=== PATIENT | female | born 1960 | race African-American/Black ===

== ENCOUNTER 2024-01-31 10:24 | Inpatient (IN) | payer MEDICAID ==
[~2024-01-31] VITALS: Ht 160 cm; Wt 75.2 kg
[2024-01-31] MEDS ORDERED: METOCLOPRAMIDE HCL 5MG/ml INJ 2ml VIAL IV ONE (10:45)
[2024-01-31] MEDS ORDERED: KETOROLAC TROMETH 30 MG/ML 1ML VIAL IV ONE (10:45)
[2024-01-31] MEDS: MORPHINE SULFATE 4 MG/ML SYR/VIAL IV ONE (11:16)
[2024-01-31] MEDS: ONDANSETRON HCL 4 MG/2 ML VIAL IV ONE (11:16)
[2024-01-31] MEDS: SODIUM CHLORIDE 0.9% 1,000 ML IV ONE (11:31)
[2024-01-31 11:36] VITALS: PULSE 81; RESP 15; O2SAT 96
[2024-01-31 11:40] LABS: Albumin 4.6 g/dL (3.2-4.8); Alkaline Phosphatase 75 U/L (46-116); Anion Gap 11 (5-15); Aspartate Aminotransferase 9 U/L (13-40); BUN/Creatinine Ratio 11.4 (10.0-20.0); Bilirubin, Total 0.5 mg/dL (0.2-1.0); Blood Urea Nitrogen 16 mg/dL (9-23); Calcium 10.2 mg/dL (8.7-10.4); Carbon Dioxide 23 mmol/L (20-30); Chloride 111 mmol/L (98-107); Glucose 99 mg/dL (74-106); Lipase 39 U/L (12-53); Sodium 145 mmol/L (136-145); Total Protein 7.7 g/dL (5.7-8.2)
[2024-01-31 11:48] LABS: Alanine Aminotransferase < 9 U/L (7-40)
[2024-01-31 11:52] LABS: Lactic Acid w/Reflex 3.4 mmol/L (0.4-2.0)
[2024-01-31 12:00] LABS: Basophils # (auto) 0 10 ^3/uL (0-0.2); Basophils % (auto) 0.5 % (0.0-2.0); Eosinophils # (auto) 0.1 10 ^3/uL (0-0.8); Eosinophils % (auto) 1.5 % (0.0-7.0); Hematocrit 37.3 % (36.0-46.0); Lymphocytes # (auto) 1.6 10 ^3/uL (0.4-5.4); Lymphocytes % (auto) 22.4 % (10.0-50.0); Mean Corpuscular Hemoglobin 27.3 pg (28.0-32.0); Mean Corpuscular Hgb Conc. 32.3 g/dL (32.0-36.0); Mean Corpuscular Volume 84.8 fL (80.0-100.0); Monocytes # (auto) 0.3 10 ^3/uL (0-1.3); Monocytes % (auto) 4.4 % (0.0-12.0); Neutrophils # (auto) 5.1 10 ^3/uL (1.6-8.6); Neutrophils % (auto) 71.2 % (37.0-80.0); Nucleated Red Blood Cells % 0.1 %; Red Cell Distribution Width 13.9 % (11.8-14.3); White Blood Cell 7.2 10^3/uL (4.4-10.8)
[2024-01-31] MEDS: PIPERACILLIN-TAZOB 3.375GM 100 ML IV ONE (12:34)
[2024-01-31 12:45] LABS: Platelet Estimate Adequate
[2024-01-31] MEDS ORDERED: DOCUSATE SOD 100 MG CAP PO PRN (13:15)
[2024-01-31] MEDS ORDERED: MORPHINE SULFATE INJ 2 MG/ml SYRG IV PRN (13:15)
[2024-01-31] MEDS ORDERED: NITROGLYCERIN 0.4 MG SL TAB SL PRN (13:15)
[2024-01-31] MEDS: SODIUM CHLORIDE 0.9% 1,000 ML IV SCH (13:21)
[2024-01-31 15:24] LABS: INR 0.97 (0.9-1.15); Partial Thromboplastin Time 23.5 SEC (24.5-34.5); Prothrombin Time 10.3 sec (9.3-11.8)
[2024-01-31] MEDS: PIPERACILLIN-TAZOB 3.375GM 100 ML IV SCH (18:00)
[2024-01-31] MEDS: HYDROcodone-ACET 5/325MG TAB PO PRN (23:48)
[2024-02-01 05:05] LABS: Basophils # (auto) 0 10 ^3/uL (0-0.2); Basophils % (auto) 0.5 % (0.0-2.0); Eosinophils # (auto) 0.1 10 ^3/uL (0-0.8); Eosinophils % (auto) 1.2 % (0.0-7.0); Hematocrit 32.4 % (36.0-46.0); Hemoglobin 10.6 g/dL (12.2-16.2); Lymphocytes # (auto) 1.6 10 ^3/uL (0.4-5.4); Lymphocytes % (auto) 21.4 % (10.0-50.0); Mean Corpuscular Hemoglobin 27.5 pg (28.0-32.0); Mean Corpuscular Hgb Conc. 32.7 g/dL (32.0-36.0); Mean Corpuscular Volume 84.1 fL (80.0-100.0); Monocytes # (auto) 0.4 10 ^3/uL (0-1.3); Monocytes % (auto) 5.4 % (0.0-12.0); Neutrophils # (auto) 5.3 10 ^3/uL (1.6-8.6); Neutrophils % (auto) 71.5 % (37.0-80.0); Red Blood Cells 3.85 10^6/uL (4.0-5.20); Red Cell Distribution Width 13.9 % (11.8-14.3); White Blood Cell 7.5 10^3/uL (4.4-10.8)
[2024-02-01 05:21] LABS: Albumin 4.1 g/dL (3.2-4.8); Alkaline Phosphatase 67 U/L (46-116); Anion Gap 9 (5-15); Aspartate Aminotransferase 9 U/L (13-40); BUN/Creatinine Ratio 11.2 (10.0-20.0); Blood Urea Nitrogen 13 mg/dL (9-23); Calcium 9.2 mg/dL (8.7-10.4); Carbon Dioxide 24 mmol/L (20-30); Chloride 110 mmol/L (98-107); Glucose 87 mg/dL (74-106); Potassium 3.7 mmol/L (3.5-5.1); Sodium 143 mmol/L (136-145)
[2024-02-01 05:22] LABS: Alanine Aminotransferase < 9 U/L (7-40); Bilirubin, Total 0.7 mg/dL (0.2-1.0); Total Protein 6.8 g/dL (5.7-8.2)
[2024-02-01 13:18] VITALS: BP 178/74; PULSE 73; RESP 20; TEMP 98.5; O2SAT 100
[2024-02-01 13:36] VITALS: BP 178/74; PULSE 73; RESP 16; TEMP 98.5; O2SAT 100
[2024-02-01 13:46] VITALS: PULSE 73; RESP 16; O2SAT 100
[2024-02-01] MEDS: cloNIDine HCL 0.1 MG TAB PO PRN (14:23)
[2024-02-01] MEDS ORDERED: LOSA-534 PO (16:15)
[2024-02-01] MEDS ORDERED: PANT40TA2 PO (16:15)
[2024-02-01] MEDS ORDERED: DOCU-94 PO (16:15)
[2024-02-01] MEDS ORDERED: CALC0.5C PO (16:15)
[2024-02-01] MEDS ORDERED: FERR325T24 PO ×2 (16:15)
[2024-02-01] MEDS ORDERED: AMLO1TAB22 PO (16:15)
[2024-02-01] MEDS ORDERED: CETI10CH PO (16:15)
[2024-02-01] MEDS ORDERED: BIOT1CAP PO (16:15)
[2024-02-01] MEDS ORDERED: ASPI1TAB20 PO (16:15)
[2024-02-01 17:00] VITALS: BP 113/54; PULSE 62; RESP 18; TEMP 97.8; O2SAT 98
[2024-02-01 19:30] VITALS: PULSE 65; RESP 18; O2SAT 97
[2024-02-01 21:00] VITALS: BP 144/68; PULSE 69; RESP 20; TEMP 97.7; O2SAT 98
[2024-02-02] VITALS (7 sets, daily range): BP systolic 124–172; BP diastolic 61–69; PULSE 57–68; RESP 14–19; TEMP 97.3–98.4; O2SAT 94–99
[2024-02-02 04:10] LABS: Urine Bacteria None Seen /hpf (None Seen)
[2024-02-02 04:21] LABS: Amphetamine Screen, Urine Neg (NEGATIVE); Barbiturate Scree,Urine Neg (NEGATIVE); Benzodiazephine Screen, Urine Neg (NEGATIVE); Cannabinoid Screen, Urine Neg (NEGATIVE); Cocaine Screen, Urine Neg (NEGATIVE); Creatinine, Urine 61.14 mg/dL (30.0-125.0); Opiate Scree,Urine Neg (NEGATIVE); Phencyclidine Screen, Urine Neg (NEGATIVE)
[2024-02-02 04:34] LABS: Urine Blood Negative /uL (Negative); Urine Clarity Clear (Clear); Urine Color Colorless (Yellow); Urine Protein, UAD Negative (Negative); Urine Specific Gravity 1.012 (1.001-1.035); Urine Urobilinogen Normal (Negative); Urine WBC 1 /hpf (0 - 5)
[2024-02-02 06:21] LABS: Basophils # (auto) 0 10 ^3/uL (0-0.2); Basophils % (auto) 0.7 % (0.0-2.0); Eosinophils # (auto) 0.1 10 ^3/uL (0-0.8); Eosinophils % (auto) 2.5 % (0.0-7.0); Hematocrit 34.4 % (36.0-46.0); Hemoglobin 11.6 g/dL (12.2-16.2); Lymphocytes # (auto) 1.5 10 ^3/uL (0.4-5.4); Lymphocytes % (auto) 26.4 % (10.0-50.0); Mean Corpuscular Hemoglobin 27.8 pg (28.0-32.0); Mean Corpuscular Hgb Conc. 33.6 g/dL (32.0-36.0); Mean Corpuscular Volume 82.6 fL (80.0-100.0); Monocytes # (auto) 0.3 10 ^3/uL (0-1.3); Monocytes % (auto) 4.8 % (0.0-12.0); Neutrophils # (auto) 3.6 10 ^3/uL (1.6-8.6); Neutrophils % (auto) 65.6 % (37.0-80.0); Nucleated Red Blood Cells % 0.1 %; Red Blood Cells 4.17 10^6/uL (4.0-5.20); Red Cell Distribution Width 13.6 % (11.8-14.3); White Blood Cell 5.6 10^3/uL (4.4-10.8)
[2024-02-02 07:45] LABS: Anion Gap 7 (5-15); Calcium 9.4 mg/dL (8.5-10.1); Carbon Dioxide 26 mmol/L (20-30); Chloride 109 mmol/L (98-107); Potassium 3.6 mmol/L (3.5-5.1); Sodium 142 mmol/L (136-145)
[2024-02-02 07:52] LABS: Blood Urea Nitrogen 10 mg/dL (9-23); Glucose 102 mg/dL (74-106)
[2024-02-02] MEDS ORDERED: MIDAZOLAM HCL 2MG/2ML 2ml VIAL (1mg/ml) ONE (08:28)
[2024-02-02] MEDS ORDERED: fentaNYL CITRATE 100 MCG/2 ML VL ONE (08:28)
[2024-02-02] MEDS ORDERED: KETAMINE 50mg/ML 1ml syringe ONE (08:28)
[2024-02-02] MEDS ORDERED: ROCURONIUM 10MG/ML 10ML VIAL IV ONE (08:29)
[2024-02-02] MEDS ORDERED: LIDOCAINE 2% (LOCAL ANESTH.) PF 5ml SDV ONE (08:29)
[2024-02-02] MEDS ORDERED: LIDOCAINE 1% INJ PF 5ML AMP ONE (08:29)
[2024-02-02] MEDS ORDERED: ONDANSETRON HCL 4 MG/2 ML VIAL ONE (08:29)
[2024-02-02] MEDS ORDERED: NEOSTIGMINE 1 MG/ML INJ (10mg/10ML VIAL) ONE (08:29)
[2024-02-02] MEDS ORDERED: PROPOFOL 10 MG/ML 20 ML IV ONE (08:29)
[2024-02-02] MEDS ORDERED: SODIUM CHLORIDE LOCK 10 ML ONE (08:29)
[2024-02-02] MEDS ORDERED: MEPERIDINE HCL (50 MG/ML) 1 ML VIAL ONE (08:29)
[2024-02-02] MEDS ORDERED: GLYCOPYRROLATE 0.2 MG/ML 1ML VIAL ONE (08:29)
[2024-02-02] MEDS ORDERED: fentaNYL CITRATE 100 MCG/2 ML VL IV PRN (08:30)
[2024-02-02] MEDS ORDERED: HYDROmorphone HCL 2 MG/ML VL/or syr IV PRN (08:30)
[2024-02-02] MEDS ORDERED: MORPHINE SULFATE INJ 2 MG/ml SYRG IV PRN (08:30)
[2024-02-02] MEDS: BUPIVACAINE HCL 0.25% P/F 10 ML VIAL ONE (10:02)
[2024-02-02] MEDS: LIDOCAINE W/ EPINEPHRINE 1% 20ML VIAL ONE (10:03)
[2024-02-02] MEDS ORDERED: SUGAMMADEX 200mg/2ml Vial (100MG/ML) IV ONE (10:12)
[2024-02-02] MEDS: HYDROmorphone HCL 2 MG/ML VL/or syr IV PRN (11:30)
[2024-02-02] MEDS: ONDANSETRON HCL 4 MG/2 ML VIAL IV PRN (12:50)
[2024-02-02] MEDS ORDERED: metroNIDAZOLE 500MG/100ML 100 ML IV SCH (14:00)
[2024-02-02] MEDS: METOCLOPRAMIDE HCL 5MG/ml INJ 2ml VIAL IV ONE (15:53)
[2024-02-02] MEDS: HYDROmorphone HCL 2 MG/ML VL/or syr ONE (15:54)
[2024-02-02] MEDS: KETOROLAC TROMETH 30 MG/ML 1ML VIAL IV ONE (15:54)
[2024-02-02] MEDS: MORPHINE SULFATE INJ 2 MG/ml SYRG IV PRN (20:45)
[2024-02-02] MEDS: metroNIDAZOLE 500 MG TAB PO SCH (21:57)
[2024-02-02] MEDS ORDERED: metroNIDAZOLE 500 MG TAB PO SCH (22:00)
[2024-02-03] VITALS (7 sets, daily range): BP systolic 107–162; BP diastolic 58–74; PULSE 61–97; RESP 16–18; TEMP 97.9–98.7; O2SAT 93–98
[2024-02-03 12:10] LABS: Basophils # (auto) 0 10 ^3/uL (0-0.2); Basophils % (auto) 0.2 % (0.0-2.0); Eosinophils # (auto) 0 10 ^3/uL (0-0.8); Eosinophils % (auto) 0.7 % (0.0-7.0); Hematocrit 30.8 % (36.0-46.0); Lymphocytes % (auto) 15.8 % (10.0-50.0); Mean Corpuscular Hemoglobin 26.8 pg (28.0-32.0); Mean Corpuscular Hgb Conc. 32.4 g/dL (32.0-36.0); Mean Corpuscular Volume 82.7 fL (80.0-100.0); Monocytes # (auto) 0.3 10 ^3/uL (0-1.3); Monocytes % (auto) 4.7 % (0.0-12.0); Neutrophils # (auto) 4.9 10 ^3/uL (1.6-8.6); Neutrophils % (auto) 78.6 % (37.0-80.0); Red Blood Cells 3.72 10^6/uL (4.0-5.20); Red Cell Distribution Width 13.1 % (11.8-14.3); White Blood Cell 6.3 10^3/uL (4.4-10.8)
[2024-02-04 05:00] VITALS: BP 154/79; PULSE 79; RESP 18; TEMP 98.5; O2SAT 95
[2024-02-04 07:30] VITALS: PULSE 75; RESP 18; O2SAT 98
[2024-02-04] MEDS ORDERED: LEVO500T91 PO (08:49)
[2024-02-04] MEDS ORDERED: HYDR-4902 PO (08:49)
[2024-02-04] MEDS ORDERED: METR-344 PO (08:49)
[2024-02-04 09:00] VITALS: BP 163/77; PULSE 60; RESP 20; TEMP 98.3; O2SAT 96
[2024-02-04 11:22] VITALS: BP 148/83; PULSE 80; RESP 18; TEMP 98.5; O2SAT 98
== END 2024-02-04 13:10 | disposition home or self-care (01) | DRG 263 ==
LOC: ER 10:24 → OVERFLOW 13:12 → CENTRAL 02-01 13:35
PROVIDERS: ADMIT Nurse Practitioner Family; ATTEND Family Medicine
PROC: 0FT44ZZ Resection of Gallbladder, Percutaneous Endoscopic Approach (ICD-10-PCS; principal; 2024-02-02 09:36)
DX: K80.10 Calculus of gallbladder with chronic cholecystitis without obstruction (principal); N17.0 Acute kidney failure with tubular necrosis; E87.21 Acute metabolic acidosis; R71.0 Precipitous drop in hematocrit; E86.0 Dehydration; I10 Essential (primary) hypertension; K46.9 Unspecified abdominal hernia without obstruction or gangrene; K57.90 Diverticulosis of intestine, part unspecified, without perforation or abscess without bleeding; E78.00 Pure hypercholesterolemia, unspecified; Z88.8 Allergy status to other drugs, medicaments and biological substances; Z79.899 Other long term (current) drug therapy; Z90.710 Acquired absence of both cervix and uterus; Z79.82 Long term (current) use of aspirin; Z80.0 Family history of malignant neoplasm of digestive organs
CPT/HCPCS: 36415; 74176; 76705; 80048; 80053; 80307; 81001; 82247; 82570; 83605; 83690; 84300; 84484; 85025; 85610; 85730; 86850; 86900; 86901; 87040; 93005; G0378; J1885; J2001; J2250; J2405; J2543; J2704; J3490